=== PATIENT | female | born 1960 | race Caucasian/White ===

== ENCOUNTER 2017-09-05 16:23 | Emergency (ER) | payer BC ==
[~2017-09-05] VITALS: Ht 162.6 cm; Wt 84.5 kg
[2017-09-05] MEDS ORDERED: XANAX0.25 MG PO (17:33)
[2017-09-05 17:50] VITALS: BP 106/85
== END 2017-09-05 18:00 | disposition home or self-care (01) ==
LOC: EME 16:23
DX: F41.0 Panic disorder [episodic paroxysmal anxiety] (principal); F17.200 Nicotine dependence, unspecified, uncomplicated
CPT/HCPCS: 90832; 99281; 99284

== ENCOUNTER → 2017-09-18 | Outpatient (CLI) | payer BC ==
[~2017-09-18] MED LIST: ADVIL,NUPRIN,M200 MG PO; XANAX0.25 MG PO; antidepressant
== END | disposition home or self-care (01) ==
LOC: AMB 13:23
PROC: 0HX1XZZ Transfer Face Skin, External Approach (ICD-10-PCS; principal; 2017-09-18)
DX: C44.319 Basal cell carcinoma of skin of other parts of face (principal)
CPT/HCPCS: 88305

== ENCOUNTER → 2017-10-07 | Outpatient (CLI) | payer BC | END | disposition home or self-care (01) | LOC: AMB 10:00 | PROC: 0JB10ZZ Excision of Face Subcutaneous Tissue and Fascia, Open Approach (ICD-10-PCS; principal; 2017-10-07) | DX: C44.319 Basal cell carcinoma of skin of other parts of face (principal) | CPT/HCPCS: 88305; 88341 TC; 88342 TC ==

== ENCOUNTER 2017-10-25 20:56 | Emergency (ER) | payer BC ==
[~2017-10-25] VITALS: Ht 162.6 cm; Wt 82.9 kg
[2017-10-25 22:20] LABS: HEMATOCRIT 47.1 % (36.0-46.0); HEMOGLOBIN 15.9 G/DL (11.9-15.5); MCH 28.5 PG (29.0-34.0); MCHC 33.8 G/DL (30.0-36.0); MCV 84.4 FL (83-99); PLATELET COUNT 370 K/uL (156-360); RBC DIS.WIDTH-SD 40.1 % (39-53); RED BLOOD COUNT 5.58 M/uL (3.80-5.20)
[2017-10-25 22:37] LABS: CHLORIDE 103 mEq/L (99-109); POTASSIUM 3.1 mEq/L (3.7-5.4); SODIUM 141 mEq/L (136-147)
[2017-10-25 22:39] LABS: GLUCOSE 111 mg/dL (70-99)
[2017-10-25 22:42] LABS: SERUM ETHYL ALCOHOL < 10 mg/dL
[2017-10-25 22:43] LABS: GFR ESTIMATE (CALCULATED) > 59 mL/min/
[2017-10-25 22:44] LABS: UREA NITROGEN (BUN) 12 mg/dL (9-23)
[2017-10-25 23:24] LABS: ALBUMIN 4.3 g/dL (3.2-4.8)
[2017-10-25 23:27] LABS: TOTAL PROTEIN 7.6 g/dL (6.4-8.3)
[2017-10-25 23:29] LABS: TOTAL BILIRUBIN 0.6 mg/dL (0.0-1.0)
[2017-10-25 23:30] LABS: ALKALINE PHOSPHATASE 196 IU/L (3-129)
[2017-10-25 23:32] LABS: AST (GOT) 17 IU/L (2-34); DIRECT BILIRUBIN 0.2 mg/dL (0.0-0.3)
[2017-10-25 23:33] LABS: ALT (GPT) 15 IU/L (3-49)
[2017-10-26 00:01] LABS: TROP-I INTERPRETATION NEGATIVE; TROPONIN-I 0.02 ng/mL (0.0-0.30)
[2017-10-26 02:21] LABS: APPEARANCE CLEAR ((CLEAR)); BILIRUBIN NEGATIVE; BLOOD SMALL; COLOR AMBER ((YELLOW)); GLUCOSE (STRIP) NEGATIVE; KETONES NEGATIVE; LEUKOCYTES NEGATIVE; NITRITE POSITIVE; PROTEIN (STRIP) 30; SPECIFIC GRAVITY 1.008 (1.000-1.030)
[2017-10-26 02:25] LABS: BACTERIA RARE /HPF; CALCIUM OXALATE CRYSTALS 1+ /HPF; EPITHELIAL CELLS 1+ /HPF; HYALINE CASTS 0-5 /LPF; MUCUS TRACE /LPF; RED BLOOD CELLS 0-5 /HPF (0-5); UCUL ADDED? NO; WHITE BLOOD CELLS 0-5 /HPF (0-5)
[2017-10-26 03:25] VITALS: BP 117/87
[2017-10-26 03:49] LABS: AMPHETAMINE NEGATIVE (500 ng/mL); BARBITURATES NEGATIVE (200 ng/mL); BENZODIAZEPINES NEGATIVE (150 ng/mL); BUPRENORPHINE NEGATIVE (10 ng/mL); COCAINE NEGATIVE (150 ng/mL); METHADONE NEGATIVE (200 ng/mL); METHAMPHETAMINE NEGATIVE (500 ng/mL); OPIATES (MORPHINE) NEGATIVE (100 ng/mL); OXYCODONE NEGATIVE (100 ng/mL); PHENCYCLIDINE NEGATIVE (25 ng/mL); PROPOXYPHENE NEGATIVE (300 ng/mL); THC CANNABINOIDS NEGATIVE (50 ng/mL); TRICYCLIC ANTIDEPRESSANTS NEGATIVE (300 ng/mL)
== END 2017-10-26 03:26 | disposition home or self-care (01) ==
LOC: EME 20:56
PROVIDERS: Emergency Medicine
DX: E83.52 Hypercalcemia (principal); F41.1 Generalized anxiety disorder; R44.0 Auditory hallucinations; D72.829 Elevated white blood cell count, unspecified; F17.200 Nicotine dependence, unspecified, uncomplicated; Z87.442 Personal history of urinary calculi; Z90.49 Acquired absence of other specified parts of digestive tract
CPT/HCPCS: 70450; 71046; 80048; 80076; 81003; 84484; 85027; 90839; 93005; 99281; 99285; G0480; J7040